=== PATIENT | female | born 1970 | race Caucasian/White ===

== ENCOUNTER 2020-06-18 16:37 | Inpatient (IN) | payer OTHER, MEDICAID ==
[~2020-06-18] VITALS: Ht 167.6 cm; Wt 93.6 kg
[2020-06-18 17:05] VITALS: BP 129/94
[2020-06-18] MEDS ORDERED: LYRICA225 MG PO (17:12)
[2020-06-18] MEDS ORDERED: TOPAMAX100 MG PO (17:12)
[2020-06-18] MEDS ORDERED: AMITRIPTYLINE H10 M1 PO (17:13)
[2020-06-18] MEDS ORDERED: INDERAL LA120 M1 PO (17:13)
[2020-06-18] MEDS ORDERED: CYMBALTA60 MG PO (17:13)
[2020-06-18] MEDS ORDERED: ZANAFLEX6 MG PO (17:14)
[2020-06-18 17:39] LABS: INFLUENZA A ANTIGEN Negative (Negative); INFLUENZA B ANTIGEN Negative (Negative)
[2020-06-18 18:14] LABS: ABSOLUTE BASOPHILS 0.1 thou/uL (0.0-0.2); ABSOLUTE EOSINOPHILS 0.3 thou/uL (0.0-0.7); ABSOLUTE LYMPHOCYTES 2.4 thou/uL (0.8-5.3); ABSOLUTE MONOCYTES 0.6 thou/uL (0.0-1.2); ABSOLUTE NEUTROPHILS 5.9 thou/uL (1.6-8.1); BASOPHILS 0.5 %; EOSINOPHILS 3.2 %; HEMATOCRIT 34.3 % (37.0-47.0); HEMOGLOBIN 10.6 gm/dL (12.0-15.0); MCHC 30.9 g/dL (28.0-37.0); MCV 77.6 fL (80.0-100.0); MONOCYTES 6.9 %; MPV 9.5 fl. (7.2-11.1); NUCLEATED RBCS 0 /100WBC; PLATELET COUNT* 372 thou/uL (150-400); POLYS 63.4 %; RBC 4.42 mil/uL (4.20-5.00); RDW-CV 18.8 % (10.5-14.5); WBC 9.3 thou/uL (4.0-11.0)
[2020-06-18 18:22] LABS: CREATININE 0.8 mg/dL (0.6-1.3)
[2020-06-18 18:27] LABS: TOTAL BILIRUBIN 0.1 mg/dL (<0.1-1.0); TOTAL PROTEIN 6.9 g/dL (6.4-8.2)
[2020-06-18] MEDS ORDERED: VIBRAMYCIN 100100 M2 PO (19:22)
[2020-06-18] MEDS ORDERED: PROAIR HFA8.5 GM INH (19:25)
[2020-06-18] MEDS ORDERED: PREDNISONE 20 M20 MG PO (19:25)
[2020-06-18] MEDS ORDERED: APAP W/CODEINE1 TA2 PO (19:26)
--- NOTE | 2020-06-18 23:21 | NUR ---
SEE CONSCIOUS SEDATION DOCUMENTATION FOR VITAL SIGNS AND ASSOCIATED INFORMATION.
--- NOTE | 2020-06-18 23:49 | NUR ---
CONTACTED DR. ABRAMS IN REGARDS TO PT BLOOD PRESSURE. HE ORDERED A LITER OF FLUIDS AND CHANGED THE ADMISSION STATUS TO ICU. CONTACTED STRING LASTER TO COMMUNICATE CHANGES.
[2020-06-19] VITALS (26 sets, daily range): BP systolic 91–128; BP diastolic 53–78
[2020-06-19 02:33] LABS: URINE BILIRUBIN NEGATIVE (Negative); URINE BLOOD NEGATIVE (Negative); URINE CLARITY CLEAR; URINE COLOR YELLOW; URINE GLUCOSE-RANDOM NEGATIVE (Negative); URINE KETONES NEGATIVE (Negative); URINE LEUKOCYTES NEGATIVE (Negative); URINE NITRITE NEGATIVE (Negative); URINE PROTEIN NEGATIVE (Negative); URINE SPECIFIC GRAVITY 1.015 (1.005-1.030); URINE UROBILINOGEN 0.2 E.U./dl (0.2-1.0)
--- NOTE | 2020-06-19 04:46 | NUR ---
RECIEVED PT FROM ER AT 0030H, ON RA AND TOLERATED. PT COMPLAIN OF SORE THROAT AND CHEST PAIN FROM COUGHING. SR WITH SOME PVC'S. BP WAS FINE. NO FEVER AND NO DISTRESS NOTED. KEPT ON ISOLATION WHILE WAITING FOR PCR COVID RESULT. CONTINUE MONITORING AND TOWARDS GOALS.
--- NOTE | 2020-06-19 11:06 | EKG ---
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: : 1970 Requested By: Bruce Duff Order Number: [id number] MD: Ryland Woods Measurements Intervals [place] Rate: 62 P: 67 NM: 192 QRS: 82 QRSD: 97 T: 60 QT: 423 QTc: 430 Interpretive Statements Sinus rhythm No previous ECG available for comparison Electronically Signed On 06-19-2020 11:06:43 [employer] by Ryland Woods [email or web address] <ELECTRONICALLY SIGNED> By: Umer Woods MD, [facility] 06/19/20 1106 15 15 Umer Woods MD, [facility] /EPI
--- NOTE | 2020-06-19 15:04 | NUR ---
PT A&O x4. COMPLAINED OF HEADACHE, TYELENOL GIVEN, PAIN CONTROLLED. VSS. NS CONTD AT 100 MLS/HR. ATE 20-30% OF HER MEALS. REPORT GIVEN TO SEBAS JIM. TRANSFERRED TO [facility] AT 1505.
--- NOTE | 2020-06-19 15:36 | NUR ---
RECEIEVED REPORT FROM RACHEAL MARION IN ICU OF EXPECTED TRANSFER AT 1450- PT ARRIVED TO UNIT VIA W/C WITH BELONGINGS AT 1515- PT SBA TO BED- FEATHER SAWYER PLACED ORDERED, TRACING SB- VS 98.1 20 98/63 67 96% ON RA- PRIOR ASSESSMENT REVIEWED AND THIS NURSE AGREES- RIGHT SUB CLAV TRIPLE LUMEN PICC NOTED INTACT, IVF RESUMED PER ORDERED- IV TO LEFT AC D/C PER PT REQUEST-ISOLATION IN PLACE INDICATED R/T PENDING COVID PCR- CALL LIGHT AND PERSONAL BELONGINGS WITH IN REACH- ALL NEEDS MET AT THIS TIME-WCTM
[2020-06-20] VITALS: BP 105/53
[2020-06-20 04:00] VITALS: BP 113/65
--- NOTE | 2020-06-20 05:13 | NUR ---
ASSESSMENT DOCUMENTED. MEDS GIVEN PER E-MAR. CENTRAL LINE PATENT, FLUIDS INFUSING. NOTIFIED OF PAIN, ORDERS RECIEVED. PT REPORTED THINKING SHE WAS HAVING AN ALLERGIC REACTION AND ASKED FOR BENEDRYL, NOTIFIED, BUT THEN PT DID NOT NEED BENEDRYL. PTS COVID PCR CAME BACK NEGATIVE, NOTIFIED.
[2020-06-20 07:21] LABS: HEMATOCRIT 30.3 % (37.0-47.0); HEMOGLOBIN 9.5 gm/dL (12.0-15.0); MCH 23.8 pg (26.0-34.0); MCHC 31.2 g/dL (28.0-37.0); MCV 76.3 fL (80.0-100.0); MPV 9.5 fl. (7.2-11.1); RBC 3.98 mil/uL (4.20-5.00); RDW-CV 18.6 % (10.5-14.5); WBC 7.5 thou/uL (4.0-11.0)
[2020-06-20 07:30] LABS: ALBUMIN 2.8 g/dL (3.4-5.0); CALCIUM 7.9 mg/dL (8.5-10.1); CREATININE 0.8 mg/dL (0.6-1.3); POTASSIUM 3.8 mmol/L (3.5-5.1); TOTAL BILIRUBIN 0.1 mg/dL (<0.1-1.0); TOTAL PROTEIN 6.6 g/dL (6.4-8.2)
[2020-06-20 07:48] LABS: % SATURATION 4 % (20-39); IRON 13 ug/dL (50-175)
[2020-06-20 08:00] VITALS: BP 142/80
[2020-06-20 14:02] VITALS: BP 122/76
--- NOTE | 2020-06-20 14:28 | CON ---
[address] [address] CONSULTATION Name: RAJI ANDRES Room: [address] ADM IN M.R.#: [id number] Admission: 06/18/20 Attend Phys: Nathanael Soria, Discharge: Date of : 74 Report #: [id number] THIS REPORT FOR: cc: FAM - No family physician/PCP FAM - No family physician/PCP ~ Cherelle Latham DO NEUROLOGY CONSULT HISTORY OF PRESENT ILLNESS: The patient is a 49-year-old female who was admitted to the hospital stating that she had not been feeling well. She had cough, fever, congestion, shortness of breath and sore throat. She thought she might have COVID. The patient has a history of stroke. Apparently, this occurred while she was visiting her daughter in [place]. The patient describes a headache, difficulty with her vision and generalized weakness. She was given TPA, but she states that afterward, she still has difficulty looking off to the right. She is on topiramate 100 mg twice a day for headache prevention. With regard to her headaches, she gets a headache 6 times a month. She typically takes nothing for these headaches. She has no significant side effects from topiramate. 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 She has several different types of events sometimes, prior to these events, she has tingling of her tongue. She states that generalized shaking has been described to her. She also has episodes where she basically is not paying attention when her 9-year-old daughter speaks to her. She states for these events she was diagnosed by EEG with non-electrical seizures by a hospital in [place]. The patient is hoping to go home today. PAST MEDICAL HISTORY: Stroke, gastric bypass, fibromyalgia, mitral valve prolapse, nonepileptic events. PAST SURGICAL HISTORY: Hysterectomy. MEDICATIONS: Topiramate 100 mg b.i.d., Lyrica 225 mg b.i.d., Cymbalta 60 mg b.i.d., amitriptyline 10 mg at bedtime, tizanidine 6 mg t.i.d. ALLERGIES: LATEX. PHYSICAL EXAMINATION: VITAL SIGNS: Temperature 36.2, pulse rate 58, respiratory rate 16, [place] [address] CONSULTATION Name: RAJI ANDRES Room: [address] IN [facility]#: [id number] Admission: 06/18/20 Attend Phys: Nathanael Soria, Discharge: Date of : 74 Report #: [id number] pressure 113/65, bedside pulse oximetry 95%. LABORATORY WORK: Hematology: White blood cell count 7.5, hemoglobin 9.5, hematocrit 30.3, MCV 76.3, platelet count 307,000. Urinalysis negative. Chemistry: Sodium 140, potassium 3.8, chloride 109, carbon dioxide 20, BUN 11, creatinine 0.8, glucose 116, calcium 7.9, magnesium 2. Iron 13, TIBC 353, iron saturation 4%, unsaturated IBC 340. Total bilirubin 0.1, AST 12, ALT 15, alkaline phosphatase 81. Serology, coronavirus negative. NEUROLOGIC: Cranial nerves 2-12 are grossly intact with the exception of gross confrontational haines where the patient has a right homonymous hemianopsia. Motor exam demonstrates symmetrical strength in all 4 extremities with tone and bulk normal. Reflexes are 2/4 in the upper and lower extremities. Plantar responses are flexor bilaterally. Coordination demonstrates no evidence of dysmetria. IMPRESSION AND DISCUSSION: This patient has a history of stroke. 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 This is old. She tells me that she is not on any medication for this, but at one point, she was on Xarelto for pulmonary embolus. Unfortunately, we have no records from [place] where this stroke was worked up. I am going to suggest that the patient follow up with a neurologist as an outpatient. Today, I am going to order hypercoagulable lab work, after which time, I would recommend the patient begin aspirin 81 mg daily. My understanding from the patient is that she has nonepileptic events. The topiramate is not for her seizure disorder, but is for headache control. These events have already been worked up in [place]. Unfortunately, she did not know where they had been worked up. She was at that time and I strongly encouraged her to call her ex- and find out what facility she was at when this was worked up because she will need this information when she follows up as an outpatient with a neurologist. The patient also has migraine headaches. They are well controlled on topiramate 100 mg twice a day. I thank you for your kind referral of the patient, please do not hesitate to contact me should you have any further questions. I do think the patient should be able to go home today with no change in her medications other than the addition of aspirin 81 mg daily. I will call her with the results of the hypercoagulable lab work when they become available. [address] [address] CONSULTATION Name: RAJI ANDRES Room: [address] IN [facility].#: [id number] Admission: 06/18/20 Attend Phys: Nathanael Soria, Discharge: Date of : 74 Report #: [id number] I thank you for your kind referral of the patient. <ELECTRONICALLY SIGNED> By: Cherelle Latham DO 06/20/20 1428 1011 [id number] Latham DO /nt
--- NOTE | 2020-06-20 15:30 | NUR ---
transfer from [facility] to 226 telephone report given prior to arrival patient to via wc oriented to and call light denies pain
[2020-06-20 17:00] VITALS: BP 132/76
[2020-06-20 20:39] VITALS: BP 120/74
[2020-06-20 22:23] LABS: INFLUENZA A ANTIGEN Negative (Negative); INFLUENZA B ANTIGEN Negative (Negative)
[2020-06-21 00:14] VITALS: BP 110/61
[2020-06-21 04:11] VITALS: BP 112/68
[2020-06-21 04:38] LABS: HEMATOCRIT 28.8 % (37.0-47.0); HEMOGLOBIN 8.9 gm/dL (12.0-15.0); MCH 23.8 pg (26.0-34.0); MCHC 30.7 g/dL (28.0-37.0); MCV 77.3 fL (80.0-100.0); MPV 9.5 fl. (7.2-11.1); RBC 3.73 mil/uL (4.20-5.00); RDW-CV 18.8 % (10.5-14.5); WBC 8.7 thou/uL (4.0-11.0)
[2020-06-21 05:14] LABS: CALCIUM 7.8 mg/dL (8.5-10.1); CREATININE 0.8 mg/dL (0.6-1.3); POTASSIUM 3.2 mmol/L (3.5-5.1)
[2020-06-21] MEDS ORDERED: CEFDINIR300 MG PO (06:47)
[2020-06-21] MEDS ORDERED: AZITHROMYCIN500 MG PO (06:47)
--- NOTE | 2020-06-21 07:35 | NUR ---
PT IS ABLE TO COMMUNICATE HER NEEDS TO STAFF EFFECTIVELY. CURRENT PAIN MEDICATION REGIMEN HAS BEEN ADEQUATE FOR CONTROLLING HER PAIN UP TO THIS TIME. SEIZURE PRECAUTIONS MAINTAINED. VERY LIKELY DISCHARGE TODAY; PT NEEDS TO GET OUT EARLY, MD AND RN ARE AWARE.
[2020-06-21 08:00] VITALS: BP 125/80
[2020-06-21 08:11] VITALS: BP 112/68
--- NOTE | 2020-06-21 11:04 | NUR ---
ASSUMED CARE OF PATIENT THIS AM AT 0730. PATIENT IS ALERT AND ORIENTED X 4. SHE IS ANXIOUS TO DISCHARGE. SHE SAYS THAT THE DR TOLD HER THAT SHE COULD LEAVE THIS AM. DR CHOUDHARY PAGED. DR CHOUDHARY OKAYED PATIENT'S DISCHARGE THIS AM. CENTRAL LINE DISCONTINUED. TELEMONITOR REMOVED. PATIENT DISCHARGED TO HOME WITH BELONGINGS.
[2020-06-21 11:59] VITALS: BP 130/57
== END 2020-06-21 10:30 | disposition home or self-care (01) | DRG 871 ==
LOC: M.ERS 16:37 → M.ICU 19:54 → M.TBA-ER 19:54 → M.ORTHSURG 19:54 → M.ICU 06-19 00:02 → M.ORTHSURG 06-19 15:32 → M.2W 06-20 16:41
PROVIDERS: Internal Medicine; Physician Assistant; Psychiatry & Neurology Neurology; ADMIT Family Medicine; ATTEND Family Medicine
PROC: 02HV33Z Insertion of Infusion Device into Superior Vena Cava, Percutaneous Approach (ICD-10-PCS; principal; 2020-06-18)
DX: A41.9 Sepsis, unspecified organism (principal); J15.6 Pneumonia due to other Gram-negative bacteria; E86.0 Dehydration; I95.9 Hypotension, unspecified; G40.909 Epilepsy, unspecified, not intractable, without status epilepticus; D50.9 Iron deficiency anemia, unspecified; E86.1 Hypovolemia; B34.9 Viral infection, unspecified; M79.7 Fibromyalgia; E66.01 Morbid (severe) obesity due to excess calories; G43.909 Migraine, unspecified, not intractable, without status migrainosus; Z20.828 Contact with and (suspected) exposure to other viral communicable diseases; Z68.33 Body mass index [BMI] 33.0-33.9, adult; Z86.711 Personal history of pulmonary embolism; Z86.73 Personal history of transient ischemic attack (TIA), and cerebral infarction without residual deficits; Z98.84 Bariatric surgery status; Z90.710 Acquired absence of both cervix and uterus; Z79.899 Other long term (current) drug therapy; Z91.040 Latex allergy status